=== PATIENT | female | born 1965 | race African-American/Black ===

== ENCOUNTER 2016-10-16 10:28 | Emergency (ER) | payer OTHER ==
[~2016-10-16] VITALS: Ht 162.6 cm; Wt 102.0 kg
--- NOTE | ~2016-10-16 | CT2 ---
[facility] A Service of [facility] RADIOLOGY TEXT RESULTS PATIENT: ABILIO GALLARDO LOCATION: [facility] : 67 UNIT #: [id number] AGE: [address]: Jayme Nava MD SEX: F ORDER DR: [id number] [facility] [address] [place], [place] [address] [id number] E MR#: [id number] Acc #: [id number] NAME: ABILIO GALLARDO : 1965 SEX: F STUDY DATE/TIME: 10/16/2016 13:04 UNIT: [facility] ROOM: STUDY DESCRIPTION: CT Abd and Pelv W Cont Attending Physician: Jayme Nava M.D. Ordering Physician: Jayme Nava M.D. Primary Care Physician: Tia Francois M.D. MEDICAL IMAGING REPORT This report is preliminary unless electronic signature is present EXAM CT abdomen and pelvis, 10/16/2016. HISTORY Abdomen pain and vomiting since yesterday. Upper abdomen and right side pain, diagnosed with UTI on 10/12/2016. History of , tubal. TECHNIQUE CT abdomen and pelvis performed with intravascular administration of 100 mL Isovue-370. Enteric contrast not administered. Study limited in the absence of enteric contrast. This CT exam was performed with one or more of the following radiation dose reduction techniques: automatic exposure control, adjustment of mA and/or kV according to patient size, and iterative reconstruction. COMPARISON 09/28/2014 FINDINGS The lung bases show minimal dependent atelectasis. Borderline cardiac enlargement, stable. Liver unremarkable. Uncomplicated cholelithiasis. Spleen, pancreas, adrenal glands, kidneys unremarkable. CT PELVIS: No inguinal adenopathy. Urinary bladder unremarkable. Uterus is mildly prominent for a patient of this age. Similar appearance on prior examination. There are multiple uterine fibroids present. No suspicious uterine or adnexal findings. There is no free fluid in the pelvis. There is a right adnexal/ovarian cyst measuring 1.6 cm in diameter, likely the dominant follicle for this menstrual cycle. There is no pelvic or retroperitoneal adenopathy. Distal esophagus, stomach, small bowel, appendix, colon unremarkable. The aorta normal in caliber. No acute-appearing bony abnormality. Posterior concentric disc bulge L4-L5. [facility] A Service of [facility] RADIOLOGY TEXT RESULTS PATIENT: ABILIO GALLARDO LOCATION: [facility] : 67 UNIT #: [id number] AGE: [address]: Jayme Nava MD SEX: F ORDER DR: Mild mass effect on thecal sac. Similar appearance on prior examination. No acute-appearing bony abnormality. IMPRESSION 1. No suspicious acute abnormality is seen in the abdomen or pelvis. The patient gives history of recent diagnosis of urinary tract infection. No perinephric, periureteral, or perivesical inflammatory change is seen. Kidneys unremarkable in appearance. 2. Uncomplicated cholelithiasis. 3. Stable appearance of mildly enlarged fibroid uterus. 4. Right ovarian cyst measuring about 1.6 cm in diameter. Probably a dominant follicle for this menstrual cycle. 5. Appendix and remainder of alimentary canal unremarkable. 6. No abnormal fluid collections. Dictated by... Sin Avalos M.D. THIS IS AN ELECTRONICALLY VERIFIED REPORT Sin Avalos M.D. at 10/17/2016 6:25 PM BHAKTI/nola TD: 10/16/2016 18:13 JOB #: [id number] MEDICAL IMAGING REPORT Page 1 of 1 COPY
[~2016-10-16 10:28] MED LIST: ALBUTEROL17 GM INH; AMARYL PO; ANTIVERT PO; ANTIVERT12.5 MG PO; ATIVAN PO; BENZONATATE PO; CLARITIN D PO; CLEOCIN HCL300 M1 PO; DICYCLOMINE HCL20 MG PO; DULERA 100 MCG/13 GM; DULERA 100 MCG/13 GM IH; FERROUS SULFATE PO; FLEXERIL10 M1 PO; FLEXERIL10 MG PO; FLONASE 0.05% N16 G1 IN; LANTUS SOLOSTAR3 ML SQ; LANTUS100 U/M1 SQ; LANTUS100 U/ML SQ; LORTAB 7.51 TAB PO; MEDROL4 MG/DOSE- PO; METFORMIN HCL500 M1 PO; NAPROSYN375 MG PO; PATIENT'S PHARMACY; PHENERGAN25 M1 PO; PRENATAL1 TA1 PO; PRILOSEC20 MG PO; PROAIR HFA8.5 GM; PROAIR HFA8.5 GM IH; PYRIDIUM PO; ROBAXIN500 MG PO; TRAMADOL HCL50 M2 PO; VICODIN 5/1 TAB 5/50 PO; VITAMIN D 22000 UNIT PO; VITAMIN D400 UNI2 PO; VITAMIN D50000 UNIT; VOLTAREN75 MG PO; ZOFRAN ODT4 MG SL; ZOFRAN ODT4 MG/UDTAB PO; ZOFRAN PO; ZOFRAN2 MG/M1 PO; ZYRTEC PO
[2016-10-16 11:29] LABS: URINE SOURCE CLEAN CATCH
[2016-10-16 11:34] LABS: URINE APPEARANCE CLOUDY; URINE BILIRUBIN NEG (NEG); URINE BLOOD NEG (NEG); URINE COLOR YELLOW; URINE GLUCOSE 100 MG/DL (NEG); URINE KETONE NEG (NEG); URINE LEUKOCYTE ESTERASE 2+ (NEG); URINE NITRATE NEG (NEG); URINE PROTEIN NEG (NEG); URINE SPECIFIC GRAVITY 1.024 (1.003-1.035)
[2016-10-16 11:36] LABS: CULTURE INDICATED? YES; U HYALINE CASTS AUWI 0-2 /[LPF]; URBCS1 AUWI 0-2 /[HPF] (0-2); URINE BACTERIA AUWI 2+ (NEGATIVE); URINE SQUAMOUS EPITHELIAL CELL MOD /[HPF]
[2016-10-16 11:37] LABS: BASOPHIL% 0.4 % (0-2.5); EOSINOPHIL% 0.2 % (0.0-7.0); HEMATOCRIT 36.5 % (35.0-45.0); HEMOGLOBIN 12.3 gm/dL (12.0-16.0); LYMPHOCYTE# 1.8 X10e3 (1.0-3.5); LYMPHOCYTE% 26.1 % (17.0-45.0); MEAN CORPUSCULAR HEMOGLOBIN 31.7 PG (28-34); MEAN CORPUSCULAR HGB CONC 33.7 g/dL (30-36); MEAN PLATELET VOLUME 9.3 FL (6.5-11.5); MONOCYTE# 0.6 X10e3 (0-1.0); MONOCYTE% 8.4 % (3.0-12.0); NEUTROPHIL# 4.5 X10e3 (1.5-7.1); NEUTROPHIL% 64.9 % (40-75); PLATELET COUNT 269 X10e3 (140-420); RED BLOOD COUNT 3.89 X10e (3.90-5.30); RED CELL DISTRIBUTION WIDTH 12.8 % (11.0-15.5); WHITE BLOOD COUNT 6.9 X10e3 (4.0-10.5)
[2016-10-16 11:41] LABS: DIFF IND NO
[2016-10-16 12:02] LABS: ALBUMIN SERUM 3.4 g/dL (3.5-5.0); BILIRUBIN, DIRECT 0.1 mg/dL (0.0-0.2); BILIRUBIN,INDIRECT 0.5 mg/dL (0.0-0.9); BILIRUBIN,TOTAL 0.6 mg/dL (0.2-2.0); BUN/CREATININE RATIO 12.5; CALCIUM SERUM 8.2 mg/dL (8.4-10.2); CREATININE SERUM 0.8 mg/dL (0.6-1.4); GLOM FILT RATE Estimated 99.7 mL/min (>60); POTASSIUM 3.7 mmol/L (3.5-5.1); PROTEIN TOTAL SERUM 6.4 g/dL (6.0-8.3)
== END 2016-10-16 15:22 | disposition home or self-care (01) ==
LOC: CED 10:28
PROVIDERS: Emergency Medicine
DX: N30.90 Cystitis, unspecified without hematuria (principal); E11.9 Type 2 diabetes mellitus without complications; J45.909 Unspecified asthma, uncomplicated; Z98.51 Tubal ligation status; Z88.8 Allergy status to other drugs, medicaments and biological substances; Z88.2 Allergy status to sulfonamides; Z91.040 Latex allergy status; Z88.1 Allergy status to other antibiotic agents; Z79.4 Long term (current) use of insulin
CPT/HCPCS: 36415; 74177; 80048; 80076; 81003; 82150; 83690; 84703; 85025; 87086; 96361; 96365; 96375; 96376; 99284; J0696; J2270; J2405; Q9967

== ENCOUNTER 2016-11-10 22:42 | Emergency (ER) | payer OTHER ==
[~2016-11-10] VITALS: Ht 162.6 cm; Wt 106.6 kg
[2016-11-11 01:06] LABS: URINE SOURCE CLEAN CATCH
[2016-11-11 01:09] LABS: URINE APPEARANCE CLEAR; URINE BILIRUBIN NEG (NEG); URINE BLOOD NEG (NEG); URINE COLOR YELLOW; URINE GLUCOSE 250 MG/DL (NEG); URINE KETONE NEG (NEG); URINE LEUKOCYTE ESTERASE NEG (NEG); URINE NITRATE NEG (NEG); URINE PH 5.5 (5-8); URINE PROTEIN NEG (NEG)
[2016-11-11 01:19] LABS: CULTURE INDICATED? NO
[2016-11-11 01:37] LABS: BASOPHIL# 0.1 X10e3 (0-0.3); BASOPHIL% 0.8 % (0-2.5); EOSINOPHIL% 0.7 % (0.0-7.0); HEMATOCRIT 36.7 % (35.0-45.0); HEMOGLOBIN 12.5 gm/dL (12.0-16.0); LYMPHOCYTE# 2.4 X10e3 (1.0-3.5); LYMPHOCYTE% 33.9 % (17.0-45.0); MEAN CELL VOLUME 92.2 FL (83-96); MEAN CORPUSCULAR HEMOGLOBIN 31.5 PG (28-34); MEAN CORPUSCULAR HGB CONC 34.2 g/dL (30-36); MEAN PLATELET VOLUME 9.2 FL (6.5-11.5); MONOCYTE# 0.6 X10e3 (0-1.0); MONOCYTE% 8.9 % (3.0-12.0); NEUTROPHIL% 55.7 % (40-75); PLATELET COUNT 267 X10e3 (140-420); RED BLOOD COUNT 3.98 X10e (3.90-5.30); RED CELL DISTRIBUTION WIDTH 12.1 % (11.0-15.5); WHITE BLOOD COUNT 7.1 X10e3 (4.0-10.5)
[2016-11-11 01:43] LABS: DIFF IND NO
[2016-11-11 02:01] LABS: ALBUMIN SERUM 3.6 g/dL (3.5-5.0); BILIRUBIN, DIRECT 0.1 mg/dL (0.0-0.2); BILIRUBIN,INDIRECT 0.6 mg/dL (0.0-0.9); BILIRUBIN,TOTAL 0.7 mg/dL (0.2-2.0); BUN/CREATININE RATIO 15.55; CALCIUM SERUM 8.3 mg/dL (8.4-10.2); CREATININE SERUM 0.9 mg/dL (0.6-1.4); GLOM FILT RATE Estimated 86.5 mL/min (>60); POTASSIUM 3.9 mmol/L (3.5-5.1); PROTEIN TOTAL SERUM 6.8 g/dL (6.0-8.3)
== END 2016-11-11 02:45 | disposition home or self-care (01) ==
LOC: CED 22:42
DX: R10.13 Epigastric pain (principal); E11.9 Type 2 diabetes mellitus without complications; J45.909 Unspecified asthma, uncomplicated; Z88.6 Allergy status to analgesic agent; Z88.0 Allergy status to penicillin; Z88.2 Allergy status to sulfonamides; Z91.040 Latex allergy status; Z88.1 Allergy status to other antibiotic agents; Z88.8 Allergy status to other drugs, medicaments and biological substances
CPT/HCPCS: 36415; 80048; 80076; 81003; 82150; 82947; 83690; 84703; 85025; 96361; 96374; 99284; C9113